=== PATIENT | female | born 1940 | race Caucasian/White ===

== ENCOUNTER 2018-03-02 08:47 | Emergency (ER) | payer OTHER, SELFPAY ==
[2018-03-02] VITALS (8 sets, daily range): BP systolic 149–176; BP diastolic 79–100; PULSE 81–93; RESP 12–16; TEMP 36.5; O2SAT 99–100
--- NOTE | 2018-03-02 09:10 | PC.NURSE ---
pt reports, treated for diverticulitis, has been on liquid diet for 9 days, now with generalized weakness, onset of pink blood with the stool and with wiping. denies injuries. denies fever,vomiting,trauma.
--- NOTE | 2018-03-02 09:14 | PC.NURSE ---
pt here for abdominal ct.
[2018-03-02 09:21] LABS: Add Manual Diff / Slide Review NO; Basophils Percent Auto 0.7 % (0-2); Eosinophils Percent Auto 0.2 % (2-4); Hematocrit 41.3 % (36-46); Hemoglobin 14.5 g/dL (12.0-16.0); Lymphocytes Percent Auto 21.7 % (25-40); Mean Corpuscular HGB Conc 35.2 % (30-36); Mean Corpuscular Hemoglobin 33.5 PG (26-34); Mean Corpuscular Volume 95.1 fL (80-100); Monocytes Percent Auto 10.5 % (3-14); Neutrophils Absolute Auto 4000 /uL (3000-5900); Neutrophils Percent Auto 66.9 % (50-75); Platelet Count 175 X10^3/uL (150-400); Red Blood Cell Count 4.34 X10^6/uL (4.0-5.2); Red Cell Distribution Width 12.2 % (11.6-14.8); White Blood Cell Count 5.9 X10^3/uL (4.5-11.0)
[2018-03-02 09:29] LABS: Alanine Aminotransferase 34 IU/L (9-52); Albumin 4.3 g/dL (3.5-5.0); Albumin Globulin Ratio 1.5 (1.0-2.8); Alkaline Phosphatase 106 U/L (38-126); Aspartate Aminotransferase 29 IU/L (14-36); BUN Creatinine Ratio 17.1 (6-22); Bilirubin Total 0.7 mg/dL (0.2-1.3); Blood Urea Nitrogen 12 mg/dL (7-17); Calcium 9.3 mg/dL (8.4-10.2); Carbon Dioxide 28 mmol/L (22-32); Chloride 101 mmol/L (98-107); Estimated Glomerular Filt Rate > 60.0 mL/min (>60); Globulin 2.9 g/dL (1.7-4.1); Glucose 117 mg/dL (80-110); HEMOLYSIS < 15 (0-50); Lipase 42 U/L (23-300); Sodium 140 mmol/L (137-145); Total Protein 7.2 g/dL (6.3-8.2)
--- NOTE | 2018-03-02 09:35 | DI.CT.S_ITS ---
PROCEDURE: CT ABDOMEN PELVIS W CON INDICATIONS: LLQ pain - diverticulitis? TECHNIQUE: After the administration of intravenous contrast, 5 mm thick sections acquired from the diaphragm to the symphysis. 5 mm coronal and sagittal reformats were acquired. For radiation dose reduction, the following was used: automated exposure control, adjustment of mA and/or kV according to patient size. COMPARISON: [facility], CT, ABDOMEN/PELVIS WITH CONTRAST, 04/07/2013, 14:59. FINDINGS: Image quality: Excellent. ABDOMEN: Lung bases: Lung bases are clear. Heart size is mildly enlarged. Solid organs: Liver is normal in size and enhancement. Gallbladder is normal. Biliary system is non dilated. Pancreas enhances normally. Spleen is normal in size and enhancement. No adrenal nodules. Kidneys demonstrate normal size and enhancement. There is moderate left hydronephrosis and ureterectasis. Mild right hydronephrosis and ureterectasis. Peritoneum and bowel: Bowel loops demonstrate normal wall thickness and caliber. Diverticulosis in the sigmoid colon no evidence of diverticulitis. Portions of the sigmoid colon are poorly seen due to mass effect caused by a large pelvic mass. No free fluid or air. Nodes and vessels: No retroperitoneal or mesenteric adenopathy by size criteria. Aorta and inferior vena cava are normal in size. Miscellaneous: No ventral hernias. Rim-enhancing mass centered on the left ilium involving the left gluteal musculature and left iliacus musculature overall measures 3.4 x 3.3 x 4.1 CM (se 2 im 62). PELVIS: Genitourinary: Bladder wall thickness is normal. Mixed density and enhancement pelvic mass centered in the expected location of the uterus measuring at least 6.5 x 10.1 x 2.6 CM. There are foci of internal calcification. Miscellaneous: No inguinal hernias or adenopathy. Pelvic lymph nodes are poorly seen and may be confluent with the pelvic mass. Bones: . No vertebral body compression fractures. IMPRESSION: 1. Large multilobulated partially enhancing mass in the expected location of the uterus is suspicious for malignancy. Uterine fibroids are unlikely given the marked change since 2012 and the patient's age. Recommend gynecology consultation. 2. Rim enhancing mass centered on the left ilium suspicious for metastasis. Abscess is also possible. This finding would likely be amenable to image guided biopsy. 3. Bilateral left greater than right hydronephrosis and ureterectasis likely due to mass effect caused by the large pelvic mass. The distal ureters are poorly seen but no calcified obstructing lesions are specifically identified. Dictated by: Marvin Olvera M.D. on 03/02/2018 at 10:15 Approved by: Marvin Olvera M.D. on 03/02/2018 at 10:27
--- NOTE | 2018-03-02 12:54 | PC.NURSE ---
snacks provided for pt.
[2018-03-02 13:00] LABS: Bacteria Urine None Seen; RBC Urine None Seen (0-5/HPF); WBC Urine None Seen (0-5/HPF)
[2018-03-02 13:07] LABS: Appearance Urine UA CLEAR; Bilirubin Urine UA NEGATIVE (NEGATIVE); Color Urine UA YELLOW; Glucose Urine UA NEGATIVE (Normal); Ketones Urine UA NEGATIVE (NEGATIVE); Leukocyte Esterase Urine UA NEGATIVE (NEGATIVE); Nitrite Urine UA Negative (Negative); Occult Blood Urine UA NEGATIVE (Negative); Protein Urine UA NEGATIVE (Negative); Specific Gravity Urine UA <=1.005 (1.000-1.035); Urobilinogen Urine UA 0.2 E.U./dL (0.2); pH Urine UA 5.5 (4.5-8.0)
--- NOTE | 2018-03-02 13:36 | ED_ITS ---
HPI - Abdominal Pain General Chief Complaint: Abdominal Pain Stated Complaint: continued bleeding post diverticulitis treatment History of Present Illness HPI narrative: HPI 77-year-old female presents for evaluation of approximately 9 days of mild left lower quadrant pain. Patient reports that she has had similar prior episode that was clinically diagnosed with diverticulitis (no imaging) and resolved with antibiotics. Patient was evaluated several days instructions and course at the clinic and initiated on antibiotics, purportedly for a clinically suspected diverticulitis. Patient's failed to have improvement symptoms, patient is been continuing to take a liquid/blended diet attempt to relieve her symptoms but is had loose or, watery stools in the interim time without fevers, dysuria, urinary frequency, vaginal discharge or discomfort. Patient notes her pain is mild nonradiating. Patient had a colonoscopy notable for diverticuli. No recent travel, drinking unpurified water. M/S/F/SocHx notable for: please see HPI; remainder reviewed with patient and in chart. ROS: Negative constitutional, eye, cardiovascular, pulmonary, GI, , MSK, skin , neurologic, psychiatric, endocrine unless noted in the HPI. Exam Gen: Pleasant, non-toxic appearing, resting comfortably. HEENT: NC, AT, PEERL, EOMI. Resp: Clear to auscultation bilaterally, normal work of breathing, no accessory muscle usage. Card: Regular rate and rhythm with no murmurs, rubs, or gallops, extremities warm and well perfused. GI: mild left lower quadrant tenderness to palpation, remainder of abdomen nontender to palpation throughout all quadrants, no focal tenderness at McBurney 's point, negative Mack's sign, non-distended, no rebound or guarding. : No suprapubic tenderness to palpation. No CVA tenderness percussion bilaterally. MSK: No visible deformities, strength and tone without visually appreciable deficit. Skin: Normal color with no visible lesions. Neuro: AO x 3, no facial asymmetry, vision and hearing WNL. Psych: Mood and affect appropriate. Labs / Imaging: WBC 5.9, HB 14.5, NA 140, K 4.0, total bilirubin 0.7, AST 29, ALT 34, ALP 16, lipase 42 CT abdomen/pelvis: large multilobulated partially enhancing mass in the expected location of the uterus is suspicious for malignancy. Uterine fibroids are unlikely given the marked change since 2012 the patient's age. Recommend gynecology consultation. Rim-enhancing mass centered on the left ilium suspicious for metastasis. Abscess is also possible. This finding would likely be amenable to image guided biopsy. Bilateral left greater than right hydronephrosis and ureterectasis likely due to mass effect caused by the large pelvic mass. The distal ureters are poorly seen but no calcified obstructing lesions are specifically identified. MDM Previous chart, nursing note, labs, imaging, and vitals reviewed. A: 77-year-old female presents for evaluation of approximately 9 days of mild left lower quadrant pain. DDx & Evaluation: imaging w/ a large multilobulated mass and the location of the uterus without rim-enhancing left ilium mass. Given the patient's history and laboratory studies doubt abscess, tentatively suspect metastasis. Repeat interview with patient noting mild insidious onset symptoms since at least October that became more prominent over the last 9 days. Denies B symptoms. Patient receives healthcare through , [email or web address]. However, patient is insured through [employer], discussed patient's case with the [employer] transfer service, Dr. Adams accepted patient in transfer for further care. Patient transferred by [facility]. Impression: suspected uterine cancer (please reference below for remainder of encounter information) Related Data Previous Rx's Medication Instructions Recorded estradiol [Estrace] 0.5 gm VAGINAL Q3DAYS #42.5 gm 08/14/16 Allergies Allergy/AdvReac Type Severity Reaction Status Date / Time No Known Allergies Allergy Uncoded 01/09/18 13:01 [facility] Social History Smoking Status: Never smoker Exam Initial Vital Signs Initial Vital Signs: Vital Signs Temperature 97.7 F 03/02/18 09:00 Pulse Rate 90 03/02/18 09:00 Respiratory Rate 14 03/02/18 09:00 Blood Pressure 160/81 H 03/02/18 09:00 Pulse Oximetry 100 03/02/18 09:00 Course Orders Ordered: ED Orders 03/02/18 09:00 Complete Blood Count AUTO DIFF Stat Comprehensive Metabolic Panel Stat Lipase Stat 03/02/18 09:22 Urinalysis and Microscopic Stat 03/02/18 09:35 CT abdomen pelvis w con Stat Vital Signs - 8 hr 03/02/18 09:00 03/02/18 09:14 03/02/18 12:15 Temperature 97.7 F 97.7 F Pulse Rate 90 90 86 Respiratory Rate 14 14 16 Blood Pressure 160/81 H 160/81 H Blood Pressure [Left Arm] 176/86 H Pulse Oximetry 100 100 100 03/02/18 12:46 Temperature Pulse Rate 82 Respiratory Rate 16 Blood Pressure Blood Pressure [Left Arm] 176/86 H Pulse Oximetry 99 MDM - Abdominal Pain Lab Data Result diagrams: 03/02/18 09:00 03/02/18 09:00 Lab Results 03/02/18 03/02/18 03/02/18 Range/Units 09:00 09:00 09:22 WBC 5.9 (4.5-11.0) X10^3/uL RBC 4.34 (4.0-5.2) X10^6/uL Hgb 14.5 (12.0-16.0) g/dL Hct 41.3 (36-46) % MCV 95.1 (80-100) fL MCH 33.5 (26-34) PG MCHC 35.2 (30-36) % RDW 12.2 (11.6-14.8) % Plt Count 175 (150-400) X10^3/uL Neut % (Auto) 66.9 (50-75) % Lymph % (Auto) 21.7 L (25-40) % [place] % (Auto) 10.5 (3-14) % Eos % (Auto) 0.2 L (2-4) % Baso % (Auto) 0.7 (0-2) % Neut # (Auto) 4000 (9816-1235) /uL Sodium 140 (137-145) mmol/L Potassium 4.0 (3.4-5.1) mmol/L Chloride 101 (98-107) mmol/L Carbon Dioxide 28 (22-32) mmol/L BUN 12 (7-17) mg/dL Creatinine 0.70 (0.52-1.04) mg/dL Estimated GFR > 60.0 (>60) mL/min BUN/Creatinine Ratio 17.1 (6-22) Glucose 117 H (80-110) mg/dL Calcium 9.3 (8.4-10.2) mg/dL Total Bilirubin 0.7 (0.2-1.3) mg/dL AST 29 (14-36) IU/L ALT 34 (9-52) IU/L Alkaline Phosphatase 106 (38-126) U/L Total Protein 7.2 (6.3-8.2) g/dL Albumin 4.3 (3.5-5.0) g/dL Globulin 2.9 (1.7-4.1) g/dL Albumin/Globulin Ratio 1.5 (1.0-2.8) Lipase 42 (23-300) U/L Urine Color Yellow Urine Appearance Clear Urine pH 5.5 (4.5-8.0) Ur Specific [place] <=1.005 (1.000-1.035) Urine Protein Negative (Negative) Urine Glucose (UA) Negative (Normal) g/dL Urine Ketones Negative (NEGATIVE) Urine Occult Blood Negative (Negative) Urine Nitrate Negative (Negative) Urine Bilirubin Negative (NEGATIVE) Urine Urobilinogen 0.2 (0.2) E.U./dL Ur Leukocyte Esterase Negative (NEGATIVE) Urine RBC None seen (0-5/HPF) Urine WBC None seen (0-5/HPF) Urine Bacteria None seen (None) Ur Culture Indicated? Not Reportable Micro UA Comment Not Reportable Discharge Plan Departure Prescriptions: No Action estradiol [Estrace] 0.01 % cream 0.5 gm Vaginal Q3DAYS Qty: 42.5 RF: 3
--- NOTE | 2018-03-02 15:29 | PC.NURSE ---
pt's son, alejandra smiley, coming from [facility] to get pt's car keys to get car in parking lot, while she is being transferred to [facility] in [place]. security aware of car information in parking lot.
--- NOTE | 2018-03-02 16:09 | PC.NURSE ---
[phone] prov rn to call back.
--- NOTE | 2018-03-02 16:47 | PC.NURSE ---
report given to rn at prov.
== END 2018-03-02 15:51 | disposition short-term general hospital (02) ==
PROVIDERS: Emergency Provider Emergency Medicine; Family Provider Nurse Practitioner Family; PCP Nurse Practitioner Family
DX: N85.9 Noninflammatory disorder of uterus, unspecified (principal)
CPT/HCPCS: 36591; 74177; 80053; 81001; 81003; 83690; 85025; 99283; 99285; Q9967